=== PATIENT | male | born 1950 | race Caucasian/White ===

== ENCOUNTER 2019-11-15 19:07 | Inpatient (IN) | payer OTHER, MEDICARE ==
[~2019-11-15] VITALS: Ht 170.2 cm; Wt 107.6 kg
[2019-11-15] MEDS ORDERED: GABA300 PO (19:46)
[2019-11-15] MEDS ORDERED: ZESTORETIC 20-1 EACH PO (19:48)
[2019-11-15] MEDS ORDERED: PYRI100 PO (19:49)
[2019-11-15] MEDS ORDERED: B-1100 M1 PO (19:49)
[2019-11-15 20:08] LABS: BASOPHILS ABSOLUTE AUTO 0.04 K/mm3 (0.00-0.23); BASOPHILS PERCENT AUTO 1 % (0-2); EOSINOPHILS ABSOLUTE AUTO 0.13 K/mm3 (0.00-0.68); EOSINOPHILS PERCENT AUTO 2 % (0-6); Hematocrit 45.6 % (37.0-53.0); IMMATURE GRAN ABSOLUTE AUTO 0.03 K/mm3 (0.00-0.10); IMMATURE GRAN PERCENT AUTO 0 % (0-1); LYMPHOCYTES ABSOLUTE AUTO 1.92 K/mm3 (0.84-5.20); LYMPHOCYTES PERCENT AUTO 28 % (21-46); MONOCYTES ABSOLUTE AUTO 0.75 K/mm3 (0.16-1.47); MONOCYTES PERCENT AUTO 11 % (4-13); Mean Corpuscular HGB 30.8 pg (26.0-34.0); Mean Corpuscular HGB Conc 32.9 g/dL (31.5-36.5); Mean Corpuscular Volume 94 fL (80-100); Mean Platelet Volume 9.3 fL (9.1-12.4); NEUTROPHILS ABSOLUTE AUTO 4.07 K/mm3 (1.96-9.15); NEUTROPHILS PERCENT AUTO 59 % (41-73); Platelet Count 250 K/mm3 (150-400); RDW Coefficient Variation 11.7 % (11.7-14.2); Red Blood Cell Count 4.87 M/mm3 (4.30-5.90); White Blood Cell Count 6.94 K/mm3 (4.00-11.30)
[2019-11-15 20:35] LABS: Alanine Aminotransfer (ALT/SGP 35 U/L (12-78); Albumin, Blood 2.9 g/dL (3.4-5.0); Albumin/Globulin Ratio 0.6 (0.8-1.8); Alk Phos 136 U/L (50-136); Anion Gap 5 mmol/L (6-16); Aspartate Aminotrans (AST/SGOT 21 U/L (12-37); Bilirubin, Total 0.3 mg/dL (0.1-1.0); Blood Urea Nitrogen 10 mg/dL (8-24); Bun/Creatinine Ratio 13.6 (12.0-20.0); CO2, Blood 25 mmol/L (21-32); Calcium, Blood 8.2 mg/dL (8.5-10.1); Chloride, Blood 108 mmol/L (98-108); Creatinine, Blood 0.73 mg/dL (0.60-1.20); Ethanol (Alcohol), Blood, Med 192 mg/dL; Globulin, Blood 4.7 g/dL (2.2-4.0); Glomerular Filtration Rate >60 (60-); Glucose, Blood 111 mg/dL (70-99); Sodium, Blood 138 mmol/L (136-145); Total Protein, Blood 7.6 g/dL (6.4-8.2); Troponin I <0.015 ng/mL (0.000-0.040)
[2019-11-15 22:14] LABS: PO2 Arterial 63.3 mmHg (80-100); pH Blood Arterial 7.32 (7.35-7.45)
[2019-11-15 23:15] LABS: Magnesium, Blood 2.2 mg/dL (1.6-2.4); Phosphorus, Blood 3.2 mg/dL (2.5-4.9)
--- NOTE | 2019-11-16 00:15 | NUR ---
REPORT TELEPHONE REPORT RECEIVED FROM JEROD CUSTOMS GUARD. SHE [facility]B AND ADMIT WITH COPD EXAC. PT WILL NEED CPAP WHEN ADMITTED R/T SAT 88-94%. PT HAS RECEIVED ALBUTEROL RT TX AND DUONEBS TX R/T WHEEZES THROUGHOUT. PT GIVEN ATIVAN FOR ALCOHOL WITHDRAWAL AND NICOTENE PATCH PER REQUEST. PT NOW SOMULENT. 0015- BEDSIDE REPORT RECEIVED FROM CUSTOMS GUARD UPON ARRIVAL TO FLOOR. IV SITE DISCUSSED. PT TRANSFERRED SELF FROM COT TO BED WITH SBA. 0020- PT PLACED IN HOSPITAL GOWN AND PERSONAL BELONGINGS PLACED IN BAG AND PUT IN CABINET. VS OBTAINED. ADMISSION ASSESSMENT COMPLETED. HX OBTAINED FROM PT R/T A&O X4, AWAKE, ASKING FOR SNACK- SANDWICH GIVEN AFTER DISCUSSING WITH SOURAV FRIAS.
[2019-11-16] MEDS ORDERED: CLONIDINE1 EAC2 TOP (00:53)
[2019-11-16] MEDS ORDERED: Accuneb0.63 MG/3 INH (00:55)
[2019-11-16] MEDS ORDERED: HYDR10 PO (00:57)
[2019-11-16] MEDS ORDERED: LORA2 PO (00:57)
[2019-11-16 03:59] LABS: Hematocrit 44.5 % (37.0-53.0); Hemoglobin 14.6 g/dL (13.5-17.5); Mean Corpuscular HGB 30.8 pg (26.0-34.0); Mean Corpuscular HGB Conc 32.8 g/dL (31.5-36.5); Mean Corpuscular Volume 94 fL (80-100); Mean Platelet Volume 9.4 fL (9.1-12.4); Platelet Count 238 K/mm3 (150-400); RDW Coefficient Variation 11.6 % (11.7-14.2); RDW Standard Deviation 40.4 fL (35.1-46.3); Red Blood Cell Count 4.74 M/mm3 (4.30-5.90); White Blood Cell Count 8.47 K/mm3 (4.00-11.30)
[2019-11-16 04:21] LABS: Anion Gap 10 mmol/L (6-16); Blood Urea Nitrogen 11 mg/dL (8-24); Bun/Creatinine Ratio 14.3 (12.0-20.0); CO2, Blood 24 mmol/L (21-32); Calcium, Blood 8.5 mg/dL (8.5-10.1); Chloride, Blood 105 mmol/L (98-108); Creatinine, Blood 0.77 mg/dL (0.60-1.20); Glomerular Filtration Rate >60 (60-); Glucose, Blood 308 mg/dL (70-99); Potassium, Blood 4.1 mmol/L (3.5-5.5); Sodium, Blood 139 mmol/L (136-145)
[2019-11-16 04:46] LABS: BAND PERCENT MAN 6 % (0-8); BASOPHILS PERCENT MAN 0 % (0-2); EOSINOPHILS PERCENT MAN 0 % (0-6); LYMPHOCYTES ABSOLUTE MAN 0.33 K/mm3 (0.84-5.20); LYMPHOCYTES PERCENT MAN 4 % (21-46); METAMYELOCYTE ABSOLUTE MAN 0.08 K/mm3 (0.00-0.00); METAMYELOCYTE PERCENT MAN 1 % (0-0); MONOCYTES ABSOLUTE MAN 0.33 K/mm3 (0.16-1.47); MONOCYTES PERCENT MAN 4 % (4-13); MYELOCYTE ABSOLUTE MAN 0.08 K/mm3 (0.00-0.00); MYELOCYTE PERCENT MAN 1 % (0-0); NEUTROPHILS ABSOLUTE MAN 7.62 K/mm3 (1.96-9.15); SEG NEUTROPHILS PERCENT MAN 84 % (41-73); TOTAL CELLS COUNTED 100
--- NOTE | 2019-11-16 06:45 | NUR ---
SHIFT SUMMARY PT ADMITTED FROM THE ER FOR EXAC OF COPD. PT TRANSFERED SELF TO BED FROM ER COT WITH VERBAL CUES. PT A&OX4 THIS SHIFT, CIWA FROM 6 TO 0. PT RECEIVED BANANA BAG X1, PRECEDEX FROM 0.2mcg/kg/HR AND STOPPED AT 0415. HEART RATE REMAINS ST PER MONITOR, RATE 110s. B/P ELEVATED. LUNGS EXP WHEEZES THROUGHOUT, SOB WITH ACTIVITY, SAT MID-90s ON RA. BOWEL SOUNDS PRESENT, ABD ROUND, SOFT, NONTENDER. PT STATES HAS URGE INCONTENCE, PULL-UP IN PLACE. SKIN WNL. SL X2 TO RT FA. RAILS UP X3, CALL LIGHT IN REACH, SCDs IN PLACE. BEDSIDE REPORT GIVEN TO DAY SHIFT RN.
--- NOTE | 2019-11-16 07:30 | NUR ---
Received report from Fabiola ALEXANDRA. Patient siiting up in bed watching TV and on RA and sats mid 90%'s. He denies any SOB , pain or current needs. He is a good historian of events leading to admission. He states he wants to stop drinking and states no current suicidal ideas. He MAEW and is SBA when getting up to bathroom. He has 20ga IV Upper RFA dressing intact and site WNL's and is flushed and SL'd.He also has 22ga IV lower RFA dressing intact and site WNL's and is flushed and SL's. He uses urinal appropriately. He has been hypertensive and with communicate with Dr Das for starting him on home meds.
--- NOTE | 2019-11-16 09:27 | NUR ---
Patient tolerated 100% of breakfast and am meds.Called Dr Das and had her look at home meds for his hypertension. Medicated per mar for anxiety Ativan and Librium. Also started him on New BP meds and dieuretic. He denies any current needs. Dr Das in room now assessing patient.
--- NOTE | 2019-11-16 11:43 | NUR ---
Patient was up in chair and the bed was malfunctioning and was changed out. He was wanting to get up to shower after lunch. He curently went back to bed until after lunch. He remains hypertensive 170-180's systolic. He denies any current needs.
--- NOTE | 2019-11-16 13:57 | NUR ---
Patient sistolic 160 with PRN dose labatelol 10mg. Talked with Dr Das and he can go to PCU. Patient remains CIWA about 6. VSS. Patient currently resting on right side.
--- NOTE | 2019-11-16 18:24 | NUR ---
Patient has been resting without TV on and has been up intermitently to have bathroom privledges with one SBA. His systolic remains 160's, HR 1 teens. He has remainsed CIWA 5.
--- NOTE | 2019-11-16 20:00 | NUR ---
ASSUMED CARE NOTE: ASSUMED CARE OF PT AT 1900, RECEIVED REPORT FROM TORREY ALEXANDRA. UPON ENTERING ROOM PT IS ALERT AND ORIENTED X4, HOWEVER HE WAS STATING THAT HE WAS HAVING VISUAL HALLUCINATIONS (CARTOON CHARACTERS ON THE WALL), HE DENIES AUDITORY HALLUCINATIONS. LATEST CIWA SCORE WAS 11, MEDICATED PT PER EMAR. C/O OF HEADACHE, TREMOR, AND DIARRHEA. PT IS AFEBRILE AT THIS TIME. PT IS ON RA WITH SPO2 @ 93%, NO RESPRIATORY DISTRESS NOTED. PT DENIES PAIN AT THIS TIME. PT IN SIT WITH HR BETWEEN 90-100 BPM. SBP IN THE 170'S, WILL MEDICATE PER EMAR. BED AT LOWEST LEVEL, CALL LIGHT WITHIN REACH. WILL CONTINUE TO MONITOR PT T/O SHIFT.
--- NOTE | 2019-11-16 22:07 | NUR ---
RECEIVED REPORT FROM SHIVANI ALEXANDRA, ASSUMED CARE OF PT @ 2177.
--- NOTE | 2019-11-16 22:37 | NUR ---
SMOKING CESSATION EDUCATION PT STS QUIT SMOKING 3 WEEKS AGO, USING NICOTINE LOZENGES AT HOME TO ASSIST IN CESSATION. THIS RN NOTICED LOZENGES AT BEDSIDE, PT STS HAS BEEN TAKING 2MG LOZENGE APPROX Q8H. PT HAS NICOTINE PATCH ON L ARM, EDUCATED PT ON RISKS WITH TAKING TOO MUCH NICOTINE. PT STS HE HAS READ THE LABELS ON THE LOZENGES AND GUM AND DOES NOT THINK HE IS TAKING TOO MUCH. LET PT KNOW THAT WE WILL NEED AN ORDER WHILE HE IS IN THE HOSPITAL TO CONTINUE TO TAKE LOZENGES. WILL FOLLOW UP WITH PROVIDER.
--- NOTE | 2019-11-17 02:08 | NUR ---
ANXIETY/AGITATION PT BECOMING INCREASINGLY AGITATED AND ANXIOUS, CIWA INCREASING TO >20. PT BEGAN TO HAVE HALLUCINATIONS, STS SEEING SNAKES ON THE FLOOR, VERY RESTLESS AND FIDGETING HIS FEET, ALTERNATING BETWEEN SQUEEZING AND PETTING PILLOW, PT TALKING VERY FAST- CONCERNED ABOUT PAYING BILLS WHILE HE IS IN THE HOSPITAL/TREATMENT PROGRAM, SOME TACTILE DISTURBANCES. PRECEDEX INITIATED AND TITRATED NEEDED (SEE FLOWSHEET). THIS RN AND OFFICE SWEEPER, DOUG, AT BEDSIDE SPEAKING WITH PT ABOUT CONCERNS. [facility]" WHEN HE NEEDED HELP. PT ENGAGED IN CONVERSATION PRECEDEX INFUSING, PT TALKED WITH NURSING STAFF ABOUT HIS DOG THAT RECENTLY , BECAME TEARFUL, CONVERSATION REDIRECTED TO HOBBIES, PT ABLE TO SPEAK AT LENGTH REGARDING HIS ENJOYMENT OF MUSHROOM PICKING, VARIOUS TYPES OF MUSHROOMS, RECIPES, ETC. SPEECH SLOWED TO NORMAL RATE, PT APPEARS LESS AGITATED AND ANXIOUS. CALL PLACED TO DR BLAKE REGARDING CHAGNES, PT CHANGED TO ICU STATUS.
[2019-11-17 03:30] LABS: BASOPHILS ABSOLUTE AUTO 0.01 K/mm3 (0.00-0.23); BASOPHILS PERCENT AUTO 0 % (0-2); EOSINOPHILS PERCENT AUTO 0 % (0-6); Hematocrit 45.3 % (37.0-53.0); Hemoglobin 15.3 g/dL (13.5-17.5); IMMATURE GRAN ABSOLUTE AUTO 0.09 K/mm3 (0.00-0.10); IMMATURE GRAN PERCENT AUTO 1 % (0-1); LYMPHOCYTES ABSOLUTE AUTO 0.64 K/mm3 (0.84-5.20); LYMPHOCYTES PERCENT AUTO 4 % (21-46); MONOCYTES ABSOLUTE AUTO 0.51 K/mm3 (0.16-1.47); MONOCYTES PERCENT AUTO 3 % (4-13); Mean Corpuscular HGB Conc 33.8 g/dL (31.5-36.5); Mean Corpuscular Volume 92 fL (80-100); Mean Platelet Volume 9.3 fL (9.1-12.4); NEUTROPHILS ABSOLUTE AUTO 15.96 K/mm3 (1.96-9.15); NEUTROPHILS PERCENT AUTO 93 % (41-73); Platelet Count 281 K/mm3 (150-400); RDW Coefficient Variation 11.6 % (11.7-14.2); RDW Standard Deviation 39.5 fL (35.1-46.3); Red Blood Cell Count 4.93 M/mm3 (4.30-5.90); White Blood Cell Count 17.21 K/mm3 (4.00-11.30)
[2019-11-17 03:45] LABS: Anion Gap 8 mmol/L (6-16); Blood Urea Nitrogen 23 mg/dL (8-24); Bun/Creatinine Ratio 26.7 (12.0-20.0); CO2, Blood 25 mmol/L (21-32); Chloride, Blood 104 mmol/L (98-108); Creatinine, Blood 0.86 mg/dL (0.60-1.20); Glomerular Filtration Rate >60 (60-); Glucose, Blood 236 mg/dL (70-99); Sodium, Blood 137 mmol/L (136-145)
--- NOTE | 2019-11-17 06:02 | NUR ---
SHIFT SUMMARY PT STATUS CHANGED TO ICU, PLACED BACK ON PRECEDEX THIS SHIFT (SEE PREVIOUS NOTE), INCREASED AGITATION AND CIWA TOWARDS END OF SHIFT, PRECEDEX GTT INF @ 0.7, PRN LIBRIUM PROVIDED. PT WITH EXERTIONAL DYSPNEA, O2 SATURATIONS MAINTAINED> 90% ON RA WHILE AWAKE, SATURATIONS DECREASED TO 88% DURING PERIODS OF SLEEP/REST, 2L PER NC PLACED ON PT. MONITOR SHOWS HR 80'S-90'S, HYPERTENSIVE WITH SBP 130'S-180'S, PRN BP MEDICATION AND ETOH WITHDRAWAL MEDICATION ADEQUATE FOR BP CONTROL. PT COMPLAINS OF DIARRHEA, REQUESTS IMMODIUM FOR RELIEF, STOOLS THIS SHIFT SOFT BUT FORMED, SBA TO BEDSIDE TOILET.
--- NOTE | 2019-11-17 08:28 | NUR ---
PT IS SLEEPING ON PRECEDEX GTT AT 0.7MCG AND WILL ASSESS AND CONCIDER DEC. GTT. VSS. AND SATS NOTED BUT O2 WAS OUT OF HIS NOSE AND STILL ADIQUATE. WILL ASSESS FURTHER. DID NOT ATTEMP TO FULLY AWAKEN PT AT THIS POINT.
--- NOTE | 2019-11-17 09:14 | NUR ---
DR WOODSON IN TO VIEW AND ASSESS PT STATUS. VSS. PRECEDEX GTT JUST TURNED DOWN TO 0.6 MCG AND WILL FOLLOW PT STATUS.
--- NOTE | 2019-11-17 10:58 | NUR ---
NEW IV SITE STARTED. PRECEDEX GTT REMAINS AT 0.6 MCG AND PT IS EASILY AROUSED BUT WILL FALL TO SLEEP WHEN LEFT ALONE. PT ANSWERS QUESTIONS AND WILL FOLLOW LIMITED COMMANDS AND IS KENDALL WELL.
--- NOTE | 2019-11-17 14:02 | NUR ---
PT SLEEPING WITH BP SLOWLY BEGINING TO COME DOWN AFTER DELAYED AM BP MEDS WERE GIVEN. PT WAS AWAKE ENOUGH TO TALK NOON PO MEDS. WILL FOLLOW.
--- NOTE | 2019-11-17 15:24 | NUR ---
PT UP TO BSC WITH SBA AND VOIDED. PT ABLE TO CONVERSE BUT FALLING TO SLEEP WHEN LEFT ALONE. SPEECH IS SL GARBLED BUT ABLE TO UNDERSTAND IT.
--- NOTE | 2019-11-17 18:32 | NUR ---
PT HAS BEEN DROWSY AND SLEEPING BUT AWAKENED, LIBRIUM PO GIVEN, AND PT AWAKE ENOUGH TO REQUEST MEDICATION. PT HAS TAKEN PO LIQUID WELL BUT DOES EASILY FALL TO SLEEP AND HAVE BEEN CAUTIOUS WITH PO SOLIDS. PRECEDEX GTT IS 0.6 MCG AND BANANNA BAG IS COMPLET. CIWA NOTED.
--- NOTE | 2019-11-17 19:13 | NUR ---
ASSUMED CARE NOTE: ASSUMED CARE OF PT @ 1900, RECEVIED REPORT FROM ED ALEXANDRA. UPON ENTERING ROOM PT IS SEDATED WITH 0.6MCG/KG/HR, HOWEVER IS IS AROUSABLE. PT IS ORIENTED TO SELF, PLACE, DATE, TIME. HE IS ABLE TO RECALL RECENT AND REMOTE EVENTS. HE STATES HE IS NO LONGER HAVING VISUAL/AUDITORY HALLUCINATIONS. PT STATES HE IS HUNGRY, HOWEVER HE CANNOT STAY AWAKE LONG ENOUGH TO EAT SAFLEY. PT IS DIAPHORETIC, AFEBRILE. PT IS ON 2L OF O2 VIA NC, WITH SPO2 @ 94%, PT STATES HE IS SOB, RT @ BEDSIDE DELIVERING BREATHING Tx. PT DENIES ANY PAIN/NAUSEA AT THIS TIME. BED AT LOWEST LEVEL. WILL CONTINUE TO MONITOR PT T/O SHIFT.
--- NOTE | 2019-11-17 21:51 | NUR ---
UPDATE: PT WOKE UP ASKING FOR FOOD AND WATER. PT HAS ABLE TO STAY AWAKE DURING BEDSIDE SWALLOW EVAL AND WAS ABLE TO SWALLOW SAFLEY. PT STATES THAT HE WANTS A PHSYCIATRIC CONSULT BECAUSE HE WAS HAVING HALLUCINATIONS LAST NIGHT. HE STATED " MY HALLUCINATIONS HAVE NEVER BEEN THIS BAD AND, AND I THINK IT IS THE MEDS I AM GETTING". PT WAS THEN EDUCATED ON MEDICATION SIDE-EFFECTS/ ALCOHOL WITHDRAWAL S/S.
--- NOTE | 2019-11-17 23:35 | NUR ---
UPDATE: PT HAS BEEN GETTING UP 1 ASSIST, PT IS DEMONSTRATING UNSTEADY GAIT. HE IS ENCOURAGED TO USE THE URINAL IN BED. PT LAST CIWA 5. DECREASED PRECEDEX TO 0.5MCG/KG/HR. PT REFUSED HIS MIDNIGHT BREATHING Tx, AND DENIES SOB. PT CONTINUES TO BE ON 2L OF O2 VIA NC, WITH SPO2 @ 92%
--- NOTE | 2019-11-18 00:30 | NUR ---
PRECEDEX DECREASES PRECEDEX DECREASED TO 0.2MCG/KG/HR , DUE TO LOW HR IN THE 50'S.
[2019-11-18 03:44] LABS: BASOPHILS ABSOLUTE AUTO 0.01 K/mm3 (0.00-0.23); BASOPHILS PERCENT AUTO 0 % (0-2); EOSINOPHILS PERCENT AUTO 0 % (0-6); Hematocrit 47.9 % (37.0-53.0); Hemoglobin 15.7 g/dL (13.5-17.5); IMMATURE GRAN ABSOLUTE AUTO 0.09 K/mm3 (0.00-0.10); IMMATURE GRAN PERCENT AUTO 1 % (0-1); LYMPHOCYTES ABSOLUTE AUTO 0.59 K/mm3 (0.84-5.20); LYMPHOCYTES PERCENT AUTO 4 % (21-46); MONOCYTES ABSOLUTE AUTO 0.31 K/mm3 (0.16-1.47); MONOCYTES PERCENT AUTO 2 % (4-13); Mean Corpuscular HGB 30.4 pg (26.0-34.0); Mean Corpuscular HGB Conc 32.8 g/dL (31.5-36.5); Mean Corpuscular Volume 93 fL (80-100); Mean Platelet Volume 9.5 fL (9.1-12.4); NEUTROPHILS ABSOLUTE AUTO 13.06 K/mm3 (1.96-9.15); NEUTROPHILS PERCENT AUTO 93 % (41-73); Platelet Count 261 K/mm3 (150-400); RDW Coefficient Variation 11.8 % (11.7-14.2); RDW Standard Deviation 40.1 fL (35.1-46.3); Red Blood Cell Count 5.17 M/mm3 (4.30-5.90); White Blood Cell Count 14.06 K/mm3 (4.00-11.30)
--- NOTE | 2019-11-18 03:44 | NUR ---
CIWA SCORE OF 16, PT TREMORS ARE WORSENING. PT STATED " HELP, A HALF GLASS OF WINE WOULD MAKE THIS STOP". PRECEDEX INCREASED TO 0.4MCG/KG/HR (WILL MONITOR HR). PT ANXIOUS AND C/O HEADACHE, PT ALSO STATED HE FEELS PINS AND NEEDLES ALL OVER HIS BODY. ALSO GAVE LIBRIUM, AND ATIVAN PER EMAR.
[2019-11-18 04:02] LABS: Anion Gap 7 mmol/L (6-16); Blood Urea Nitrogen 22 mg/dL (8-24); Bun/Creatinine Ratio 29.8 (12.0-20.0); CO2, Blood 25 mmol/L (21-32); Calcium, Blood 8.5 mg/dL (8.5-10.1); Chloride, Blood 105 mmol/L (98-108); Creatinine, Blood 0.74 mg/dL (0.60-1.20); Glomerular Filtration Rate >60 (60-); Glucose, Blood 287 mg/dL (70-99); Magnesium, Blood 2.3 mg/dL (1.6-2.4); Potassium, Blood 3.6 mmol/L (3.5-5.5); Sodium, Blood 137 mmol/L (136-145)
--- NOTE | 2019-11-18 05:25 | NUR ---
SHIFT SUMMARY: SEE PREVIOUS NOTES. PT'S LATEST CIWA SCORE WAS A 20, PRECEDEX GTT @ 0.6MCG/KG/HR , MEDICATED PT PER EMAR WITH PRN MEDS. PT IS NOW RESTING AND ABLE TO SLEEP. PT CONTINUES TO BE ON 2L OF O2 VIA NC WITH SPO2 ABOVE 90% VSS. NO BM'S THIS SHIFT. PT HAS BEEN GETTING UP TO THE BEDSIDE TOILET WITH 1 PERSON ASSISTANCE. PT CONTINUES TO HAVE UNSTEADY GAIT. PT HAS BEEN MOSTLY IN NSR WITH HR RANGING FROM 60-80'S. HOWEVER, PT'S HR DROPPED INTO THE 50'S AT ONE POINT, THEN SLOWEY CAME BACK UP INTO THE 70'S AFTER PRECEDEX WAS DECREASED. BED AT LOWEST LEVEL, CALL LIGHT WITHIN REACH. WILL CONTINUE TO MONITOR PT UNTIL REPORT IS GIVEN TO ONCOMING SHIFT.
--- NOTE | 2019-11-18 07:00 | NUR ---
0700-ASSUMED CARE OF PT. PT IS ASLEEP AT THIS TIME. ON PRECEDEX @ 0.04MCG/KG/HR. WILL ALLOW PT TO SLEEP AT THIS TIME. 0730-PT IS AWAKE. AFEBRILE. ALERT AND ORIENTED. CIWA IS 9. PT HAS GARBLED SPEECH BUT CAN BE UNDERSTOOD.
--- NOTE | 2019-11-18 16:45 | NUR ---
Initial spiritual care note: Mr. Broussard appeared alert, albeit a bit slow. Speech is slightly garbled, but he is understandable. He admitted to feeling fearful and told me he is hospitalized for "breathing problems." He did not mention his desire to quit drinking. He reports a strong zuleyka and appreciation for prayer/spiritual encouragement. We had a good rapport. I will continue to see Mr. Broussard in coming days and will broach the topic of his alcoholism.
--- NOTE | 2019-11-18 17:58 | NUR ---
SHIFT SUMMARY: PT IS STILL ON PRECEDEX DRIP @ 0.5MCG/KG/HR. DENIES PAIN. CIWA FROM 7-15. PT HAD A DOSE OF ATIVAN AND A SCHEDULED DOSE OF LIBRIU. PT IS ALERT AND ORIENTED. PT SLEEPS MOST OF THE TIME BUT EASILY AWAKENED AND MAKES A GOOD CONVERSATION.
[2019-11-19 04:34] LABS: BASOPHILS ABSOLUTE AUTO 0.01 K/mm3 (0.00-0.23); BASOPHILS PERCENT AUTO 0 % (0-2); EOSINOPHILS PERCENT AUTO 0 % (0-6); Hematocrit 48.6 % (37.0-53.0); IMMATURE GRAN ABSOLUTE AUTO 0.08 K/mm3 (0.00-0.10); IMMATURE GRAN PERCENT AUTO 1 % (0-1); LYMPHOCYTES ABSOLUTE AUTO 0.62 K/mm3 (0.84-5.20); LYMPHOCYTES PERCENT AUTO 5 % (21-46); MONOCYTES ABSOLUTE AUTO 0.45 K/mm3 (0.16-1.47); MONOCYTES PERCENT AUTO 4 % (4-13); Mean Corpuscular HGB 30.5 pg (26.0-34.0); Mean Corpuscular HGB Conc 32.9 g/dL (31.5-36.5); Mean Corpuscular Volume 93 fL (80-100); Mean Platelet Volume 9.5 fL (9.1-12.4); NEUTROPHILS ABSOLUTE AUTO 10.38 K/mm3 (1.96-9.15); NEUTROPHILS PERCENT AUTO 90 % (41-73); Platelet Count 248 K/mm3 (150-400); RDW Coefficient Variation 11.9 % (11.7-14.2); RDW Standard Deviation 40.4 fL (35.1-46.3); Red Blood Cell Count 5.25 M/mm3 (4.30-5.90); White Blood Cell Count 11.54 K/mm3 (4.00-11.30)
[2019-11-19 04:48] LABS: Anion Gap 6 mmol/L (6-16); Blood Urea Nitrogen 28 mg/dL (8-24); Bun/Creatinine Ratio 32.6 (12.0-20.0); CO2, Blood 28 mmol/L (21-32); Calcium, Blood 8.7 mg/dL (8.5-10.1); Chloride, Blood 105 mmol/L (98-108); Creatinine, Blood 0.86 mg/dL (0.60-1.20); Glomerular Filtration Rate >60 (60-); Glucose, Blood 207 mg/dL (70-99); Magnesium, Blood 2.2 mg/dL (1.6-2.4); Phosphorus, Blood 3.7 mg/dL (2.5-4.9); Potassium, Blood 4.1 mmol/L (3.5-5.5); Sodium, Blood 139 mmol/L (136-145)
--- NOTE | 2019-11-19 06:07 | NUR ---
SHIFT SUMMARY PATIENT DID WELL UP UNTIL ABOUT MIDNIGHT. WITH LAST THREE NIGHTS, RAMPED UP AROUND MIDNIGHT. CIWA MAX 24, HAD JUST RECEIVED SCHEDULED LIBRIUM, INCREASED PRECEDEX, AND MULTIPLE IVP ATIVAN (SEE EMAR,) WAS STILL ANXIOUS, DID WANDER OFF TO SLEEP SHORTLY AFTER LAST ATIVAN. BP CONTINUED TO CLIMB DESPITE RECEIVING PRN LABETALOL, ADDITIONAL LISINOPRIL, HYDRALAZINE, WAS STARTED ON NICARDIPINE DRIP. DECREASED TO 3 MG/HR AROUND 05:30 AFTER SBP READ LESS THAN 160, PER DR. DOUGLAS ORDER. NO C/O PAIN, NO NEURO CHANGE, NO ST CHANGES ON MONITOR. VSS. ASSESSMENT IS CHARTED. WILL CONTINUE TO MONITOR.
--- NOTE | 2019-11-19 07:24 | NUR ---
Received report from Samuel ALEXANDRA. Patient lying in bed with HOB at 30 degrees and awake and listening to report. He has no questions. He is able to communicate his needs and is able to answer most question of orientation. He c/o 4/10 headache and has moderate tremors. He is on RA and sats 94%. He uses urinal with assistance and calls appropriately. He has 20ga IV to RW dressing intact and site WNL's and is infusing Precedex at 0.7 mcg/kg/min. He also has 20ga IV to RH dressining intact and site WNL's and is infusing Nicardipine at 2mg/hr just reduced from 3mg/hr for systolic 109. CBG 183 and will cover per DEC. SCD's in place.
--- NOTE | 2019-11-19 09:31 | NUR ---
Patient currently resting. He needed assisstance with breakfast r/t tremors. He tolerated am meds well. He is still able to communicate his needs. Reduced Precedex to 0.5 mcg/kg/min and he is sleeping.
--- NOTE | 2019-11-19 12:00 | NUR ---
Patient was up to bathroom with 1 full assist. VSS. He remains on 2 mg/hr Nicardipine and systolics 110-120's, HR70-80's. He remains fuzzy and un-sure of care at all times and needs to be reoriented to plan and medications. He continues to call appropriately with needs.
--- NOTE | 2019-11-19 13:30 | NUR ---
Patient did poorly with lunch and aspirated at 1215 and needed to be suctioned for about an hour. He took his noon meds. No changes in Gtt's and VSS. He remains on RA and sats low 90%'s. Patient easeily agitates and makes confusing statements about his care and needs constant reorienting to keep on track. SCD remain in place.
--- NOTE | 2019-11-19 15:30 | NUR ---
Patient has been resting since lunch. He awoke breifly yelling for help with urinal and peed 500ml tea colored urine and fell right back to sleep.
[2019-11-20 03:42] LABS: BASOPHILS ABSOLUTE AUTO 0.02 K/mm3 (0.00-0.23); BASOPHILS PERCENT AUTO 0 % (0-2); EOSINOPHILS PERCENT AUTO 0 % (0-6); Hematocrit 48.5 % (37.0-53.0); IMMATURE GRAN ABSOLUTE AUTO 0.14 K/mm3 (0.00-0.10); IMMATURE GRAN PERCENT AUTO 1 % (0-1); LYMPHOCYTES ABSOLUTE AUTO 1.43 K/mm3 (0.84-5.20); LYMPHOCYTES PERCENT AUTO 13 % (21-46); MONOCYTES ABSOLUTE AUTO 0.95 K/mm3 (0.16-1.47); MONOCYTES PERCENT AUTO 9 % (4-13); Mean Corpuscular HGB 30.5 pg (26.0-34.0); Mean Corpuscular Volume 92 fL (80-100); Mean Platelet Volume 9.3 fL (9.1-12.4); NEUTROPHILS ABSOLUTE AUTO 8.42 K/mm3 (1.96-9.15); NEUTROPHILS PERCENT AUTO 77 % (41-73); Platelet Count 237 K/mm3 (150-400); RDW Coefficient Variation 11.9 % (11.7-14.2); RDW Standard Deviation 40.6 fL (35.1-46.3); Red Blood Cell Count 5.25 M/mm3 (4.30-5.90); White Blood Cell Count 10.96 K/mm3 (4.00-11.30)
[2019-11-20 03:59] LABS: Anion Gap 5 mmol/L (6-16); Blood Urea Nitrogen 30 mg/dL (8-24); Bun/Creatinine Ratio 32.5 (12.0-20.0); CO2, Blood 29 mmol/L (21-32); Calcium, Blood 8.7 mg/dL (8.5-10.1); Chloride, Blood 106 mmol/L (98-108); Creatinine, Blood 0.92 mg/dL (0.60-1.20); Glomerular Filtration Rate >60 (60-); Glucose, Blood 156 mg/dL (70-99); Magnesium, Blood 2.1 mg/dL (1.6-2.4); Potassium, Blood 3.8 mmol/L (3.5-5.5); Sodium, Blood 140 mmol/L (136-145)
--- NOTE | 2019-11-20 04:45 | NUR ---
SHIFT SUMMARY PATIENT HAS SLEPT WELL THROUGH NIGHT. ONLY GAVE ATIVAN TWICE, SEE EMAR. CIWA MAX 30, TREATED WITH 4MG ATIVAN, IMMEDIATE RELIEF. PATIENT MAINTAINED ON 0.7 MCG/KG/MIN OF PRECEDEX, WILL ATTEMPT TO WEEN NOW THAT PATIENT SLEEPING SOUNDLY. NICARDIPINE DRIP MAINTAINED @ 1 MG/HR, NOT TITRATED SBP MAINTAINING AROUND 150s. VISUAL HALLUCINATIONS MORE INFREQUENT, TREMORS STILL PRESENT OCASSIONALLY. VSS. NO C/O PAIN. ASSESSMENT IS CHARTED. WILL CONTINUE TO MONITOR.
--- NOTE | 2019-11-20 07:43 | NUR ---
Received report from Samuel ALEXANDRA. Patient sitting up in bed and able to communicate his needs. He is a little clear todayand will call when he starts to have hallucinations. He is on RA and sats 94%. He has 20ga IV in RFA that he states and wants removed and will replace. His Precedex and Nicardipine gtt are off and VSS, see VS EMR. SCD in place bilateral calves. CBG 167
--- NOTE | 2019-11-20 10:11 | NUR ---
Patient up to bathroom several times and needs to have 1 full SBA and he is still unsteady. He was up to chair with breakfast and tolerated am meds well. He just rteturned from shower with PCT and she is also changing bed linen. He has not stated any visual hallucinations. VSS stable with PO meds and Nicardipine gtt remains off.
--- NOTE | 2019-11-20 12:18 | NUR ---
Patient is up to chair eating lunch and tolerating well. His systolic trending up and is 140's and HR 103 and he remains on RA and sats low 90%'s. No other significant changes. Patient has not stated any visual hallucinations.
--- NOTE | 2019-11-20 14:26 | NUR ---
Spiritual care visit conducted. Patient is lying in bed and alert. Patient states that his reason for calling for spiritual care is because he wants someone to set up auto-pay on his utilities because he is going out of state for alcohol reheb. I tell I will check into this for him. I then ask him about his life, his addiction, his spiritual beliefs and how DTs are effecting him. I listen empathically and provide pastoral peer counselor and prayer. Patient responds well and shows signs of restored zuleyka. I will continue to remain available to patient and family.
--- NOTE | 2019-11-20 15:00 | NUR ---
Patient has been up to bathroom several times. After lunch his anxiety increased and ativan and Librium was not working and restarted Precedex at 0.3 mcg/kg/min and within an hour at 1400 increased to 0.5 mcg/kg/min. Around 1400 his systolic increased 170's and po med were not working and started Nicardipine gtt at 2mg/min and current systolic 120's.
--- NOTE | 2019-11-20 16:59 | NUR ---
Patient is working on Nicotine lozengers from [facility] and if needed to pear picker we can call [facility] wheelchair van and take his [facility] and last four and they will pear picker from [facility]. Gtt's remain the same as last note and VSS. Patient calm and denies and visual hallucinations. He remains on RA and sats low 90%'s.
--- NOTE | 2019-11-21 05:40 | NUR ---
SHIFT SUMMARY PATIENT HAS SLEPT OFF AND ON THROUGH NIGHT. EARLY IN NIGHT HAD TO MEDICATE WITH 4MG ATIVAN, VISUAL HALUCINATIONS HAD GOTTEN SEVERE PATIENT HAD NOT RECEIVED SCHEDULED LIBRIUM AT SCHEDULED TIME. WOULD LIKELY BENEFIT FROM STRICTER ADHERANCE TO MEDICATION SCHEDULE. NIGHT WENT ON, PATIENT WAS MORE CALM, DID ASK SEVERAL TIMES FOR ONE OF US TO LEAVE HOSPITAL TO GET NICOTINE LOZENGES, UNABLE TO FILL REQUEST, IT WILL BE TAKEN CARE OF IN A.M., ABLE TO CALL [facility] AND RN CORRECTIONS THROUGH [facility]. GAVE ATIVAN FOR MODERATE TO SEVERE HALUCINATIONS, SEE CHART. VSS. ASSESSMENT IS CHARTED. WILL CONTINUE TO MONITOR.
--- NOTE | 2019-11-21 09:52 | NUR ---
BEGINNING OF SHIFT Assumed care at 0700. Bedside report received from Tarun ALEXANDRA. Pt in bed, sleeping. On 0.7 mcg/kg/hr precedex and 1 mg/hr nicardipine. Nicardipine turned off during bedside report, SBP 120s. Dr Jimenes in to see pt this AM. Discussed that pt is out of his home nicotine lozenges. Nicotine gum ordered. Provider aware that pt has nicotine patch in place. Precedex turned down to 0.3 mcg/kg/hr. Pt awake. Pt states "I am anxious as hell", skin clammy to the touch, pt vomiting, pt states he is uncomfortable and is feeling numbness and tingling throughout his body. Meds per orders. SBP 85-95. Call placed to Dr Jimenes to notify of BP. Telephone order to hold all oral antihypertensives at this time.
--- NOTE | 2019-11-21 13:39 | NUR ---
[facility] Call placed to Dr Jimenes at 1145 regarding pt's blood pressures. New orders received. Pt awoke around lunch time. Librium given at this time. Pt points to end of bed and states "there is a snake. It is hissing at me." Pt correctly states that he is in [place], in the hospital. Pt agitated. Rubbing his head and states that it hurts. Visible beads of sweat on pt's forehead. Meds per orders. BP low-normal. MAP 60 or greater. Lunch tray held as pt was drowsy.
--- NOTE | 2019-11-21 18:17 | NUR ---
SUMMARY Pt awoke for dinner. Tolerated dinner well. Pt has not gotten OOB this shift. Pt has verbalized desire to get OOB. Pt is not strong enough for this activity at this time. Pt is receiving precedex at rate of 0.7 mcg/kg/hr. Pt has not had any hallucinations this evening. Pt remains on 2 LPM NC. Will continue to closely monitor until care handoff and bedside report with oncoming RN.
--- NOTE | 2019-11-21 19:15 | NUR ---
ASSUMED CARE AT 1915, PT ASLEEP, VITALS WNL, ON NC 2L.
[2019-11-22 05:13] LABS: Anion Gap 5 mmol/L (6-16); Blood Urea Nitrogen 21 mg/dL (8-24); CO2, Blood 28 mmol/L (21-32); Calcium, Blood 8.5 mg/dL (8.5-10.1); Chloride, Blood 107 mmol/L (98-108); Creatinine, Blood 0.75 mg/dL (0.60-1.20); Glomerular Filtration Rate >60 (60-); Glucose, Blood 186 mg/dL (70-99); Magnesium, Blood 2.3 mg/dL (1.6-2.4); Potassium, Blood 4.5 mmol/L (3.5-5.5); Sodium, Blood 140 mmol/L (136-145)
--- NOTE | 2019-11-22 06:02 | NUR ---
PT ALERT WHEN AWAKE BUT IS CONVINCED THE ARE SNAKES AND CARTOON CHARACTERS IN THE ROOM HISSING AND CRAWLING ON HIM. CONTROLLED WITH ATIVAN AND LIBRIUM. PT VOID PER URINAL IN BED BUT HAS URGENCY. POWERGLIDE INSERTED IN RIGHT AC PER ICU NURSE. PRECEDEX INFUSING, UNABLE TO TITRITE DOWN DUE TO PT AGITATION. NICOTINE GUM GIVEN. PT ENJOYS JELLO. NO ACUT EVENTS WILL CONITUE TO MONITOR.
--- NOTE | 2019-11-22 07:15 | NUR ---
BEGINNING OF SHIFT Assumed care at 0700. Bedside report received from Bautista ALEXANDRA. Pt on 2 LPM NC. SpO2 90% or greater. Responsive to verbal stimulus. SB/SR per heart monitor with HR ranging from 58-65. Pt on precedex at 0.7 mcg/kg/hr. SBP greater than 100. Bed in lowest position. Call light in reach. Bed alarm on.
--- NOTE | 2019-11-22 09:00 | NUR ---
DR DOUGLAS IN TO SEE PT CIWA disucssed. Discussed BP. IV fluids stopped per verbal order from provider. Provider states to start antihypertensives one at a time, starting with lisinopril and then hydralyzine.
--- NOTE | 2019-11-22 15:14 | NUR ---
CALL PLACED TO DR JIMENES Pt has been reporting pain to right hand. Site warm and red. Call placed to Dr Jimenes to notify. Provider in room to assess site. States suspected thrombophelbitis. Venous duplex may be performed if redness progresses. Discussed chemical VTE prophylaxis. New orders given.
--- NOTE | 2019-11-22 18:39 | NUR ---
INCREASING CIWA Pt medicated with PRN ativan and PRN librium in addition to scheduled meds this evening, as pt was having visual hallucinations, stating he saw bugs crawling on his blankets. Pt A&O x 4. Pleasant and cooperative with staff. At 1820, this RN went into pt's room, and he was staring up at the ceiling. He pointed to the ceiling and stated "You and I are going to war". When asked who he was speaking to, he stated "Sage Leonardo" and stated "He told me he was going to do this to me someday". He states "Get out of my house". Pt adds "I need to leave". When asked if he is still seeing bugs on his blankets, he states "Yes". Pt medicated with PRN ativan. Precedex remains at 0.7 mcg/kg/hr.
--- NOTE | 2019-11-22 18:45 | NUR ---
SUMMARY Pt has slept for majority of shift. Pt awakes to verbal stimulus. Around 1200 and 1800, pt alert enough for PO intake and took oral medications with sips of ensure. This evening, pt ate one jello, and did not want more food. Pt has remained on 0.7 mcg/kr/hr of precedex. Pt has had visual and tactile halluncinations this shift. However, pt remains A&O x 4, pleasant and cooperative with care. He often reports anxiety and restless behavior has been observed. No BM this shift. Pt had one incontinent void of urine. Otherwise, pt is able to void using urinal while in bed, with staff assist. SB/SR per monitor. BP stable. This evening, pt has verbalized desire to drink several times, stating "I bet some whiskey would make this go away" and "can you get me a drink with alcohol in it". Will continue to closely monitor until care handoff and bedside report with oncoming RN.
--- NOTE | 2019-11-22 19:16 | NUR ---
ASSUMED CARE AT 1915, PT SLEEPING RECIEVING BREATHING TREATMENT PER RT. SOFT PRESSURE AND YAZMIN CARDIA ASYMPTHOMATIC EXPECTED FROM MEDICATION. ON 2L NC.
--- NOTE | 2019-11-22 20:25 | NUR ---
Pharmacy called to check librium limit. 300mg/day is normal dose, pt LIMIT up TO 400mg for ICU status.
--- NOTE | 2019-11-23 06:37 | NUR ---
PT IS DROWSY, ABLE TO ANSWER ALCOHOL WITHDRAW QUESTIONS. LESS SEVRE HALLUCANATIONS OVER NIGHT. ONLY 6MG OF ATIVAN GIVEN OVENIGHT. PT HAD CHICKEN SOUP AND JELLO. MOVE PT TO CHAIR IN THE MORNING. ORTHOSTATIC HYPOTENSION, 500 BOLUS GIVEN. PRECEDEX HELD AND RESTARTED AT 0.5MCG/KG/HR ONCE PRESSURE CAME BACK UO TO NORMAL.
--- NOTE | 2019-11-23 07:15 | NUR ---
START OF SHIFT NOTE: RECEIVED REPORT FROM NASRIN ROSAS, ASSUMED CARE, PATIENT IS AWAKE, ALERT AND ORIENTED, ANSWERS ALL QUESTIONS APPROPRIATELY, UP IN CHAIR AT TIME OF BEDSIDE REPORT, BUT WISHES TO GET BACK TO BED, RETURNED TO BED WITH 3 ASSIST, PATIENT HYPOTENSIVE, RECEIVED 500 CC BOLUS DURING NOC SHIFT AFTER UP TO CHAIR, PRECEDEX AT 0.5 AT THIS TIME, PATIENT CONTINUES TO BE HYPOTENSIVE AFTER RETURNED TO BED, REQUESTED A BREATHING TREATMENT, LAUREN RT, IN TO GIVE TREATMENT, PATIENT STARTING TO COUGH UP LOOSENED SECRETIONS WITH MUCH EFFORT, THIS RN TRIED TO ASSIST WITH COUGHING BUT PATIENT REFUSED ADAMENTLY, APRESOLINE HELD D/T HYPOTENSION, PATIENT IS AFEBRILE, DENIES PAIN, HR IN 70'S, SBP'S IN UPPER 80'S, PATIENT ON 2L NC SATING IN MID 90'S, LUNG SOUNDS DIMINISHED, BOWEL TONES HYPOACTIVE, PATIENT IS ABLE TO USE URINAL TO VOID, SCD'S IN PLACE, PATIENT WATCHING TV, CALL LIGHT IN REACH, WILL CONTINUE TO MONITOR.
--- NOTE | 2019-11-23 08:15 | NUR ---
DR. LINK IN TO SEE PATIENT, NEW ORDERS RECEIVED.
--- NOTE | 2019-11-23 08:32 | NUR ---
PATIENT RECEIVED BED BATH AND LINEN CHANGE, EATING BREAKFAST WITH GOOD APPETITE, CALL LIGHT IN REACH, WILL CONTINUE TO MONITOR.
--- NOTE | 2019-11-23 08:33 | NUR ---
PATIENT STARTING TO HALLUCINATE, SEEING "BUGS" ON HIS SKIN.
[2019-11-23 08:39] LABS: BASOPHILS PERCENT AUTO 0 % (0-2); EOSINOPHILS ABSOLUTE AUTO 0.08 K/mm3 (0.00-0.68); EOSINOPHILS PERCENT AUTO 1 % (0-6); Hematocrit 45.6 % (37.0-53.0); Hemoglobin 14.9 g/dL (13.5-17.5); IMMATURE GRAN ABSOLUTE AUTO 0.04 K/mm3 (0.00-0.10); IMMATURE GRAN PERCENT AUTO 1 % (0-1); LYMPHOCYTES ABSOLUTE AUTO 1.91 K/mm3 (0.84-5.20); LYMPHOCYTES PERCENT AUTO 22 % (21-46); MONOCYTES ABSOLUTE AUTO 0.82 K/mm3 (0.16-1.47); MONOCYTES PERCENT AUTO 9 % (4-13); Mean Corpuscular HGB 30.9 pg (26.0-34.0); Mean Corpuscular HGB Conc 32.7 g/dL (31.5-36.5); Mean Platelet Volume 9.9 fL (9.1-12.4); NEUTROPHILS ABSOLUTE AUTO 5.86 K/mm3 (1.96-9.15); NEUTROPHILS PERCENT AUTO 67 % (41-73); Platelet Count 161 K/mm3 (150-400); RDW Coefficient Variation 12.1 % (11.7-14.2); RDW Standard Deviation 41.9 fL (35.1-46.3); Red Blood Cell Count 4.82 M/mm3 (4.30-5.90); White Blood Cell Count 8.71 K/mm3 (4.00-11.30)
[2019-11-23 08:48] LABS: Mean Corpuscular Volume 95 fL (80-100)
--- NOTE | 2019-11-23 09:30 | NUR ---
PATIENT C/O PAIN IN RIGHT HAND, HAS A SUPERFICIAL SMALL CLOT, AREA OUTLINED, LIMB ELEVATED, RECEIVED MOTRIN 400 MG PO ORDERED, CALL LIGHT IN REACH, WILL CONTINUE TO MONITOR.
--- NOTE | 2019-11-23 09:49 | NUR ---
PATIENT ON HIS CELL PHONE IN ROOM [facility] AND [facility] GO BUY NICOTINE LOZENGES FOR HIM AT [facility] AND BRING THEM HERE.
--- NOTE | 2019-11-23 10:30 | NUR ---
PATIENT NOW VISIBLE SHAKING, ANXIOUS, AND AGITATED, STATED "I JUST WANT TO LEAVE AND DRINK A FIFTH OF WHISKEY AND FORGET ABOUT ALL THIS", CIWA SCORE REVEALED A RESULT OF 19 AND PATIENT RECEIVED 2 MG ATIVAN IV, CALL LIGHT IN REACH, WILL CONTINUE TO MONITOR.
--- NOTE | 2019-11-23 10:49 | NUR ---
PATIENT HAD SOME JELLO AND NOW APPEARS TO BE A LITTLE CALMER.
--- NOTE | 2019-11-23 11:44 | NUR ---
PHYSICAL THERAPY IN TO WORK WITH PATIENT AND GET HIM TO A CHAIR, FINISHED BREATHING TREATMENT, ALSO RECEIVED HIS SCHEDULED LIBRIUM, PATIENT COOPERATIVE AT THIS TIME, CALL LIGHT IN REACH, WILL CONTINUE TO MONITOR.
--- NOTE | 2019-11-23 12:44 | NUR ---
PATIENT WAS UP IN CHAIR FOR LUNCH, ARE 100 % OF HIS LUNCH WITH GOOD APPETITE, RETURNED TO BED WITH 2 ASSIST, SBP IN 120'S AT THIS TIME, CONTINUES AT 2L NC WITH MID 90'S SATURATION, SR WITH HR IN 80'S, PRECEDEX AT 0.3 AT THIS TIME, CALL LIGHT IN REACH, WILL CONTINUE TO MONITOR.
--- NOTE | 2019-11-23 13:27 | NUR ---
PATIENT AGAIN TREMOLOUS AND STATED "I CAN'T TAKE THIS ANYMORE, I FEEL LIKE NEEDLES AND PINS, I NEVER HAD IT THAT BAD", CIWA SCORE OF 18, RECEIVED 2 MG OF ATIVAN, PRECEDEX TURNED DOWN TO 0.1.
--- NOTE | 2019-11-23 15:00 | NUR ---
VISITOR IN TO SEE PATIENT, BROUGHT PATIENT'S NICOTINE LOZENGES FROM HOME, SENT TO PHARMACY FOR REGISTRATION AND LABEL APPLICATION.
--- NOTE | 2019-11-23 15:15 | NUR ---
CALL FROM PHARMACY, PATIENT'S HOME NICOTINE LOZENGES HAVE IN 2016, PATIENT WAS NOTIFIED AND PRODUCED TWO MORE CONTAINERS WITH NICOTINE LOZENGES THAT ALSO IN 2016, PATIENT AND FRIEND WERE COUNSELED ON DANGERS OF BRINGING IN HOME MEDICATIONS AND CONCEALING THOSE MEDICATIONS FROM NURSING STAFF, WHICH COULD POTENTIALLY HAVE DETRIMENTAL OUTCOMES IN COORDINATION WITH THE ORDERED MEDICATION, PATIENT AND FRIEND BOTH VERBALIZED UNDERSTANDING, CALL LIGHT IN REACH, WILL CONTINUE TO MONITOR.
--- NOTE | 2019-11-23 17:05 | NUR ---
INITIAL ASSESSMENT ASSUMED CARE OF PATIENT AT 1630. PATIENT ALERT AND ORIENTED X 4, HOWEVER ACTIVELY GOING THROUGH ETOH WITHDRAWALS WITH CIWA SCORE OF 17. PATIENT GIVEN PRN IV ATIVAN 4 MG AND PRECEDEX DRIP INCREASED FROM 0.1 TO 0.3 MCG/ KG/ HOUR. PATIENT CONTINUES TO COMPLAIN OF FEELING BUGS CRAWL ALL OVER HIM, OF THE CHAIR IN THE ROOM LOOKING LIKE A MAN, OF "FEELING LIKE GUTS ARE JUMPING OUT". PATIENT HAS TEMP OF 99.2 DEGREES FAHRENHEIT. PATIENT HAS NO COMPLAINTS OF PAIN AT THIS TIME. PATIENT DECREASED FROM 2 L NC TO 1 L NC AND CONTINUES TO SAT 90% AND GREATER. PATIENT IN SR, HR 60S TO 90S. SBP 130S TO 140S. LAST BM NOTED ON 11/20. PATIENT ON REGULAR DIET. PATIENT USES URINAL WITH ASSISTANCE. PATIENT VOIDING LIGHT YELLOW URINE. REDNESS NOTED TO R HAND; SUPERFICIAL BLOOD CLOT REPORTED THERE. NS INFUSING AT 125 MLS/ HOUR. BED ALARM TURNED ON. BED LOW AND CALL LIGHT IN REACH. WILL CONTINUE TO MONITOR PATIENT FREQUENTLY THROUGHOUT SHIFT.
--- NOTE | 2019-11-23 18:43 | NUR ---
SHIFT SUMMARY PATIENT HAS REMAINED LABILE. PATIENT COOPERATIVE AT TIMES AND ANXIOUS, AGITATED AND HALLUCINATING AT OTHER TIMES. CIWAS 17 TO 19. PATIENT HAVING VISUAL AND SENSUAL HALLUCINATIONS. PATIENT HAS MAX TEMP OF 99.2 DEGREES FAHRENHEIT. PATIENT BEING GIVEN PRN IBUPROFEN FOR COMPLAINTS OF PAIN IN R HAND. PATIENT HAS REMAINED SATTING 90% AND GREATER ON 1 TO 2 L NC. DAY SHIFT RN REPORTED THAT PATIENT HAD DRY, NONPRODUCTIVE COUGH. PATIENT REMAINED IN SR TO ST, HR 60S TO LOW 100S. SBP 130S TO 160S. PATIENT HAD MEDIUM, FORMED, BROWN BM THIS SHIFT. PATIENT VOIDED ADEQUATE AMOUNT OF LIGHT YELLOW URINE INTO URINAL WITH ASSISTANCE. NO CHANGE IN SKIN. PATIENT REPOSITIONING SELF IN BED. PATIENT 2 PERSON ASSIST TO CHAIR OR TOILET. PRECEDEX INFUSING AT 0.3 MCG/ KG/ HOUR AND NS AT 125 MLS/ HOUR. PATIENT CURRENTLY RESTING QUIETLY IN BED WITH NO COMPLAINTS. BED LOW, CALL LIGHT IN REACH, BED ALARM ON. WILL BE GIVING REPORT TO ONCOMING EYEGLASS FRAMES POLISHER NURSE SHORTLY.
--- NOTE | 2019-11-23 19:52 | NUR ---
ASSUMPTION OF CARE ASSUMED CARE OF PT @ 1900, PT SLEEPING IN BED, AROUSABLE TO VERBAL STIMULI, ORIENTED TO SELF, LOCATION, EVENT AND FOLLOWING DIRECTIONS. PT VERY DROWSY AND QUICKLY FALLS ASLEEP. LS DIMINISHED T/O, ON 1L PER NC, O2 SATURATIONS 92-96%. MONITOR SHOWS SINUS RHYTHM WITH HR 70'S, BP STABLE WITH MAPS 65-70'S. SWELLING NOTED TO R HAND, REPORT FROM DAY SHIFT STS SUPERFICIAL THROMBOSIS TO R HAND. PT REPOSITIONING SELF IN BED INDEPENDENTLY. CALL LIGHT WITHIN REACH. PRECEDEX GTT @ 0.3, NS @ 125ml/hr.
[2019-11-24 03:27] LABS: Anion Gap 5 mmol/L (6-16); Blood Urea Nitrogen 24 mg/dL (8-24); Bun/Creatinine Ratio 25.5 (12.0-20.0); CO2, Blood 26 mmol/L (21-32); Calcium, Blood 7.8 mg/dL (8.5-10.1); Chloride, Blood 112 mmol/L (98-108); Creatinine, Blood 0.94 mg/dL (0.60-1.20); Glomerular Filtration Rate >60 (60-); Glucose, Blood 134 mg/dL (70-99); Potassium, Blood 3.6 mmol/L (3.5-5.5); Sodium, Blood 143 mmol/L (136-145)
--- NOTE | 2019-11-24 03:59 | NUR ---
R HAND PAIN PT WITH INCREASING PAIN TO R HAND, RADIAL PULSE INCREASINGLY FAINT. PRN TYLENOL AND IBUPROFEN ADMINISTERED, WARM PACK PLACED ON HAND, HAND ELEVATED ON PILLOWS. WARM PACK REMOVED PT STS MAKING PAIN WORSE. PT TEARFUL AND YELLING OUT IN PAIN, STS NO ONE IS DOING ANYTHING TO HELP. INFORMED PT IT CAN TAKE TIME FOR MEDICATIONS TO BE EFFECTIVE. APPROX 1 HOUR POST TYLENOL/IBUPROFEN ADMINISTRATION WITH NO RELIEF, SPOKE WITH DR HUTCHINS REGARDING POSSIBLE SUPERFICIAL CLOT PER REPORT FROM DAYSHIFT, INCREASED PAIN, AND FAINT PULSE. VENOUS DUPLEX AND TORADAL PRN ORDERED. TORADOL ADMINISTERED WITH GOOD EFFECT.
--- NOTE | 2019-11-24 06:41 | NUR ---
SHIFT SUMMARY PT CONTINUES TO HAVE SX OF ETOH WITHDRAWAL, SEE CIWA, MEDICATIONS PROVIDED AND PRECEDEX TITRATED NEEDED. PT ON 2L O2 PER NC, O2 SATURATIONS>92%. MONITOR SHOWS SINUS RHYTHM, HR 70'S, BP INCREASED T/O SHIFT, CURRENT SBP 140-150'S. NS INFUSING @ 125ml/hr, PRECEDEX gtt @ 0.5. PT VOIDING WITH ASSISTANCE IN URINAL, TOLERATING PO INTAKE. COMPLAINTS OF PAIN TO THE RIGHT HAND (SEE PREVIOUS NOTE).
--- NOTE | 2019-11-24 07:10 | NUR ---
START OF SHIFT NOTE: RECEIVED REPORT FROM IZA SY RN, ASSUMED CARE, PATIENT IS AWAKE BUT DROWSY, ORIENTED, ABLE TO ANSWER ALL QUESTIONS APPROPRIATELY, FOLLOWS COMMANDS, C/O PAIN IN RUE, U/S ORDERED FOR POSSIBLE BLOOD CLOT, AFEBRILE, ON RA SATING AT 95 %, LUNG SOUNDS CLEAR BUT DIMINISHED, SR WITH HR IN 70'S, SBP'S ELEVATED IN 140'S TO 150'S AGAIN, BOWEL TONES PRESENT BUT HYPOACTIVE, PATIENT KNOWS WHEN HE NEEDS TO VOID AND USES URINAL WITH ASSISTANCE, PEDAL PULSES PALPABLE, CALL LIGHT IN REACH, WILL CONTINUE TO MONITOR.
--- NOTE | 2019-11-24 07:35 | NUR ---
DR. LINK IN TO SEE PATIENT, ALSO SHIP PILOT DISPATCHER IN TO DO ORDERED U/S, PRECEDEX D/C'D, IVF'S D/C'D, DR. LINK REORDERED LISINOPRIL AT A LOWER DOSE, U/S SHOWED A SUPERFICIAL CLOT AROUND TIP OF POWERGLIDE, DR. LINK EXPRESSED NO CONCERN AND POWERGLIDE IS GOOD TO USE, PLACE HEAT ON SITE TO HELP BREAK UP CLOT, WILL WRITE NEW ORDERS, CALL LIGHT IN REACH, WILL CONTINUE TO MONITOR.
--- NOTE | 2019-11-24 08:45 | NUR ---
PHYSICAL THERAPY IN TO SEE PATIENT, UP TO CHAIR FOR BREAKFAST, ATE WITH GOOD APPETITE, TOOK AM PILLS WITHOUT ANY PROBLEM SWALLOWING, WATCHING TV, CALL LIGHT IN REACH, WILL CONTINUE TO MONITOR.
--- NOTE | 2019-11-24 11:10 | NUR ---
PATIENT EXHIBITING EXTREME WITHDRAWAL SYMPTOMS, SEVERE TREMORS, HALLUCINATIONS, SEEING "CRITTERS" ON ALL JESSICA, STATED "I FEEL LIKE I AM THROWING UP", PATIENT DID NOT VOMIT, BUT IS EATING LUNCH AT THIS TIME, ALSO RECEIVED HIS SCHEDULED NOON LIBRIUM WELL 2 MG ATIVAN FOR CIWA SCORE OF 20, CALL LIGHT IN REACH, WILL CONTINUE TO MONITOR.
--- NOTE | 2019-11-24 12:22 | NUR ---
PATIENT RETURNED TO BED WITH 2 ASSIST, CONTINUES TO BE SHAKY, AND HAS ELEVATED SBP'S, CIWA SCORE STILL 19, CALL LIGHT IN REACH, WILL CONTINUE TO MONITOR.
--- NOTE | 2019-11-24 14:06 | NUR ---
CALLED DR. LINK ABOUT PATIENT'S ELEVATED BLOOD RPESSURE, NEW ORDERS RECEIVED.
--- NOTE | 2019-11-24 17:13 | NUR ---
PATIENT IS WATCHING SUPERBOWL, EATING DINNER, CALL LIGHT IN REACH, WILL CONTINUE TO MONITOR.
--- NOTE | 2019-11-24 17:42 | NUR ---
SHIFT SUMMARY NOTE: NO ACUTE EVENTS DURING THIS SHIFT, PATIENT HAS MOMENTS OF SEVERE WITHDRAWAL, HIGHEST CIWA SCORE TODAY WAS 30, RECEIVED A TOTAL OF 6 MG ATIVAN, 15 MG OF TORADOL FOR PAIN IN RUE AND HIS SCHEDULED LIBRIUM, PATIENT IS EXTREMELY AGITATED AND ANXIOUS, STATED "YOU ALL TREAT ME LIKE A PIECE OF S... AND I ALWAYS THANK EVERYBODY AND PAY THEM A COMPLIMENT", PATIENT TOOK HIS LIBRIUM, CONTINUES TO SEE "CRITTERS" ON THE JESSICA, AND ALSO SEES "HIS BLOOD CLOTS MOVING UP HIS ARM AND MULTIPLYING", PATIENT HAD AN U/S OF RUE THIS AM AND THERE IS A SUPERFICIAL CLOT AROUND THE TIP OF THE POWERGLIDE, DR. LINK AWARE AND GAVE PERMISSION TO CONTINUED USE OF POWERGLIDE, PATIENT WORKED WITH PT AND WAS UP IN CHAIR FROM BREAKFAST TO LUNCH, RETURNED TO BED, USED BSC BUT NO BM THIS SHIFT, VOIDED MULTIPLE TIMES WITH ASSISTANCE, BLOOD PRESSURE ELEVATED INTO 170'S TO 180'S, DR. LINK NOTIFIED, RECEIVED ORDER FOR LOPRESSOR, ALSO LISINOPRIL WAS REORDERED, HOWEVER PATIENT IS VERY AGITATED MOST OF THE TIME, FOR DETAILS SEE SHIFT ASSESSMENT DOCUMENTATION AND NURSES NOTES, CALL LIGHT IN REACH, WILL CONTINUE TO MONITOR AND GIVE REPORT TO ONCOMING SWAGE TOOLSETTER.
--- NOTE | 2019-11-24 18:23 | NUR ---
PATIENT PULLED OFF ALL HIS LINES AND STATED "I WANT OUT OF HERE", PATIENT WAS INSTRUCTED THAT HE NEEDED TO REMAIN IN THE HOSPITAL, PATIENT ASKED FOR BREATHING TREATMENT, SOME WHEEZING NOTED, RT NOTIFIED WILL BE HERE WITH TREATMENT, PATIENT CIWA SCORE WAS 23, RECEIVED ANOTHER 4 MG OF ATIVAN FOR EXTREME AGITATION AND ANXIETY, CALL LIGHT IN REACH, WILL CONTINUE TO MONITOR.
--- NOTE | 2019-11-24 20:30 | NUR ---
ASSUMPTION OF CARE ASSUMED CARE OF PT @ 1900, PT AWAKE IN BED, ALERT AND ORIENTED TO SELF, PLACE, EVENT AND FOLLOWING DIRECTIONS, CIWA 3. PT ON RA, RESPIRATIONS EVEN AND UNLABORED, TALKING IN FULL SENTENCES. MONITOR SHOWS SINUS RHYTHM, HR 80'S-90'S, HTN, SCHEDULED BP MEDICATIONS ON DEC, WILL CONTINUE TO MONITOR. PT UP TO BEDSIDE TOILET, CONTINENT OF BOWEL AND BLADDER, WEAK BUT STEADY GAIT WITH SBA. PT TOLERATING PO INTAKE. DISCUSSED WITH PT PLAN FOR THE NIGHT, WHEN MEDICATIONS WILL BE PASSED AND WHEN PRN MEDICATIONS ARE AVAILABLE, DISCUSSED APPROPRIATE USE OF CALL LIGHT. CALL LIGHT WITHIN REACH.
--- NOTE | 2019-11-24 21:15 | NUR ---
IMPULSIVE PT UP TO BEDSIDE TOILET, WHILE DIRECTING PT TO TOILET PT JUMPED UP IN AIR AND BECAME UNSTEADY ON FEET, DIRECTED PT NOT TO JUMP, PT JUMPED UP AGAIN AND THEN SAT ON TOILET. PT BACK TO BED, DISCUSSED WITH PT IMPORTANCE OF FOLLOWING DIRECTONS AND STAYING SAFE WHILE AMBULATING IN HOSPITAL. BED ALARM SET. PLAN TO USE URINAL/BEDPAN FOR REMAINDER OF NIGHT. CALL LIGHT WITHIN REACH.
--- NOTE | 2019-11-24 22:38 | NUR ---
BLOOD PRESSURE CALL PLACED TO DR HAGEN REGARDING HIGH BP, ETOH WITHDRAWALS STABLE. SEE NEW ORDERS FOR NORVASC AND HYDRALAZINE.
--- NOTE | 2019-11-24 23:16 | NUR ---
LABILE PTS MOOOD VERY LABILE, PT BECOMES TEARFUL, ASKING "HOW LONG IS THIS GOING TO TAKE?" ABOUT ETOH WITHDRAWALS, STS HE CANNOT SLEEP, AND THEN BEGINS TALKING ABOUT THE TELEVISION PROGRAM HE IS WATCHING AND EXPLAINS WHAT THE SHOW IS ABOUT. MEDICATION PROVIDED FOR ETOH WITHDRAWAL, PAIN AND HTN. ASSISTED PT WITH URINAL, REPOSITIONED PT IN BED. LIGHTS DIMMED, ENCOURAGED PT TO REST. CALL LIGHT WITHIN REACH.
--- NOTE | 2019-11-25 01:05 | NUR ---
CALL TO DR HUTCHINS REGARDING PTS BP AND DIFFICULTY SLEEPING. SEE NEW ORDERS FOR HYDRALAZINE AND MELATONIN.
--- NOTE | 2019-11-25 03:07 | NUR ---
PT ATTEMPTING TO GET OUT OF BED, STS JUST WANTS TO WALK AROUND. DISCUSSED WITH PT IMPULSIVE BEHAVIOR FROM EARLIER (SEE NURSING NOTE), THE TIME AND THE NEED FOR REST. PT RESISTANT TO NURSING STAFF HELPING HIM BACK INTO BED, ADMAMANT ABOUT GETTING OUT OF BED AND STS "I NEED TO LEAVE THIS ROOM", STS HE THOUGHT HE WAS AT HOME WHEN HE WOKE UP. ONCE RESITUATED IN BED, PT AGAIN ATTEMPTS TO GET OF OF BED. REMINDED PT HE NEEDS TO STAY IN BED, OFFERED TO SIT PT UP IN BED TO WATCH TV OR LISTEN TO MUSIC. PT BECAME VERY OVERWHELMED, ANXIOUS AND AGITATED, TEARFUL, STS HE WANTS TO LEAVE, CIWA 9, ATIVAN PROVIDED WITH LITTLE RELEIF. I HAD A LONG CONVERSATION WITH THE PT ABOUT WHAT HIS PLANS AND GOALS ARE, PT STS HE WANTS TO GO TO THE [facility] AND THEN TO [facility], REMINDED PT OUR GOAL IS TO GET [facility] WELL EN[facility]. PT SEEMS TO FOCUS ON NEGATIVE ASPECTS MAKING IT DIFFICULT FOR HIM TO RELAX, AT TIMES TRIES TO BARTER WITH NURSE PROMISING "GOOD BEHAVIOR" IF ALLOWED TO GET OUT OF BED AND WALK AROUND. ONCE PT CALMS, HE BECOMES REMORSEFUL AND APPOLOGIZES FOR BEHAVIOR. BED ALARM ON, CALL LIGHT WITHIN REACH.
--- NOTE | 2019-11-25 05:40 | NUR ---
SHIFT SUMMARY PT UP FOR MOST OF NIGHT, CONFUSED TO LOCATION UPON AWAKING, BUT OTHERWISE ORIENTED. PT HAS DIFFICULTY WITH DETENTION GOAL/PLANNING, KNOWS WHAT HE WANTS BUT DOES NOT UNDERSTAND THE STEPS/PROCESS TO GET THERE. IMPULSIVE, IRRITABLE AND LABILE BEHAVIOR T/O SHIFT, SEE PREVIOUS NOTES. CIWA 3-9, SCHEDULED LIBRIUM PROVIDED, MINIMAL PRN MEDICATONS REQUIRED. PT REMAINS ON RA WITH O2 SATURATIONS>90%, MONITOR SHOWS SINUS RHYTHM, OCCASSIONAL TACHYCARDIA WITH HR 80'S-110, PT HTN THIS SHIFT (SEE PREVIOUS NOTE). PT COMPLAINS OF R HAND PAIN, PRN TORADOL AND TYLENOL PROVIDED.
--- NOTE | 2019-11-25 09:09 | NUR ---
AM NOTE... FROM THE TIME CARE WAS ASSUMED ON PT HE HAS BEEN A/O BUT APPEARING SOMEWHAT GRUFF AND ANXIOUS. HOWEVER HE IS GRUFF BUT COOP. AND WILLING TO TAKE INSTRUCTION AND IS DIRECTABLE. PT CHIEF COMPLAINT IS RE HIS R HAND WRIST WHICH DOES APPEAR SOMEWHAT IRRITATED DOWN SOME OF THE VEINS ON HAND. PT WILLING TO ELEVATE AND INDICATES THIS DOES HELP BUT SAYS PAIN IN A 8/10. THIS WAS ADDRESSED WITH DR LINK AND MEDS WERE ORDERED NOTED. PT UP TO TOILET AND THEN TO CHAIR WITH MINIMAL SBA AND WAS ABLE TO FEED HIMSELF. HE DOES REMAIN SOMEWHAT IMPULSIVE BUT IS DIRECTABLE W/O ANY S/S OF WITHDRAWAL CURRENTLY.
--- NOTE | 2019-11-25 10:12 | NUR ---
IV SITES R P.G. AND L 18G AC D/C. CATH ARE INTACT AND THESE WERE D/C APPROX 1 HOUR AFTER AM HEPARIN DOSE WAS CHANGED AND GIVE.
--- NOTE | 2019-11-25 11:02 | NUR ---
PT UP FOR SHOWER. REMAINS UNSTEADY ON FEET AND REQUESTING PT TO CALL FOR SBA. PT IS UP IN CHAIR. PAIN IN R HAND/WRIST RETURNING WITH ICE AND ELEVATIION RESTARTED. PT INDICATES ICE FEELING BETTER AT THIS TIME.
--- NOTE | 2019-11-25 13:51 | NUR ---
1345 REPORT CALLED TO NATHAN ALEXANDRA AND WILL TRANSFER TO 341 VIA W/C PAULA. PT CONT TO HAVE INTERMITTENT AND CHANGING DISTRSSS WITH R HAND THAT IS WORSE AFTER ACTIVITY. ICE AND ELEVATED CURRENTLY.
--- NOTE | 2019-11-25 19:15 | NUR ---
SHIFT SUMMARY BILL ARRIVED FROM ICU THIS AFTERNOON. PT A/OX4. COMPLAINED OF L WRIST PAIN FOR WHICH TRAMADOL AND ICE WERE EFFECTIVE. GOOD APPETITE, UP TO BR WITH SBA. CALLS APPROPRIATELY BUT HAS URINARY URGENCY. CBG HIGH, SO RECEIVED INSULIN. TOOK MEDS PRESCRIBED, VSS. CALL LIGHT IN REACH, WCTM
--- NOTE | 2019-11-25 20:08 | NUR ---
11/25/192014 PT C/O RT HAND/ARM PAIN "WHERE THE BLOOD CLOT IS!". CRYING AND WANTING "SHOT". RT HAND/ARM ELEVATED ON ICE PACK ON IT. VERY RUDE TOWARDS NURSE AND UPSET. ATIVAN 2 MG PO GIVEN FOR AGITATION/RESTLESSNESS.
--- NOTE | 2019-11-25 20:53 | NUR ---
11/25/19 2015 PT STILL AT LEVEL "9". WILL PAGE ABOUT SEVERE PAIN.
--- NOTE | 2019-11-26 03:41 | NUR ---
11/26/19 0320 PT SLEEPING AND SNORING. NO DISTRESS NOTED.
--- NOTE | 2019-11-26 07:22 | NUR ---
11/26/19 0610 AWAKENED FOR VITALS, MEDS AND DAILY WT. MEDICATED FOR PAIN PER DEC. VITALS ARE STABLE. PT DID SLEEP WELL FOR ABOUT 4 HOURS. RT HAND AND ARM WARM WITH PULSE. ELEVATED RT HAND AND ARM ON PILLOW WITH ICE PACK MOST OF SHIFT.
--- NOTE | 2019-11-26 17:55 | NUR ---
PT ALERT AND ORIENTED DURING THIS SHIFT. PT FORGETFUL AT TIMES AND FORGETS TO USE CALL LIGHT. PT COOPERATIVE WITH CARE AND MAKING PLANS FOR CONTINUED SOBRIETY UPON DISCHARGED. PT CURRENTLY UP IN CHAIR EATING DINNER.
--- NOTE | 2019-11-27 07:46 | NUR ---
EOS: PATIENT WAS IMPULSIVE AND JUMPING OOB FREQUENTLY, KNOCKING THINGS OVER SETTING OFF VARIOUS ALARMS ALL SHIFT. HE COMPLAINED OF PAIN AND WAS GIVEN PAIN MEDS PER EMAR. HE COMPLAINED ABOUT HIS BED AND WE REPLACED THE BED WITH A NON-AIR BED. PT RECEIVED A SHOWER. STAFF WAS AT BEDSIDE MOST OF THE SHIFT. HE MAY BENEFIT FROM A SUPERVISED UNIT. ATTENTION SEEKING BEHAVIOUR.
[2019-11-27] MEDS ORDERED: ACET325 PO (11:27)
[2019-11-27] MEDS ORDERED: AMLO5 PO (11:28)
[2019-11-27] MEDS ORDERED: FOLI1 PO (11:28)
[2019-11-27] MEDS ORDERED: METO25 PO (11:29)
--- NOTE | 2019-11-27 14:08 | NUR ---
Spiritual care visit conducted. Patient is sitting in the doorway of his room. Patient is tearful about how he has blown up his life, about how bad he wants to live clean a sober and about dissappointed God must be with him. Patient shows signs of of diminished sense of dignity and large amounts of guilt. I help patient explore sources of meaning and value, hear confession, encourage self-care and provide spiritual guidance, companionship and prayer. Patient responds well and displays evidence of improved hope and restored [id number].
--- NOTE | 2019-11-27 14:32 | NUR ---
SUMMARY/DISCHARGE PT DISCHARGED TO HOME, DISCHARGE PLANNING HAS ARRANGED TRANSPORTATION, PT TAKEN OUT SAFELY VIA WHEELCHAIR
== END 2019-11-27 14:29 | disposition home or self-care (01) | DRG 191 ==
LOC: ER 19:07 → ICUW 22:59 → ER 11-16 00:11 → ICUE 11-16 00:11 → ICUW 11-16 00:16 → ICUE 11-16 00:16 → MEDS 11-25 14:09
PROVIDERS: Emergency Medicine; Internal Medicine; Nurse Practitioner Acute Care; ADMIT Internal Medicine
DX: J44.1 Chronic obstructive pulmonary disease with (acute) exacerbation (principal); F10.231 Alcohol dependence with withdrawal delirium; I82.611 Acute embolism and thrombosis of superficial veins of right upper extremity; F10.221 Alcohol dependence with intoxication delirium; L03.113 Cellulitis of right upper limb; G31.2 Degeneration of nervous system due to alcohol; I10 Essential (primary) hypertension; F41.1 Generalized anxiety disorder; F32.9 Major depressive disorder, single episode, unspecified; E66.9 Obesity, unspecified; F11.11 Opioid abuse, in remission; R73.9 Hyperglycemia, unspecified; Y90.6 Blood alcohol level of 120-199 mg/100 ml; Z85.46 Personal history of malignant neoplasm of prostate; F90.9 Attention-deficit hyperactivity disorder, unspecified type; G89.4 Chronic pain syndrome; M54.9 Dorsalgia, unspecified; F17.210 Nicotine dependence, cigarettes, uncomplicated; T38.0X5A Adverse effect of glucocorticoids and synthetic analogues, initial encounter; I95.9 Hypotension, unspecified; Z68.37 Body mass index [BMI] 37.0-37.9, adult
CPT/HCPCS: 36415; 36600; 71045; 80048; 80053; 82803; 82947; 83735; 83880; 84100; 84484; 85025; 93005; 93010; 93971; 94640; 94644; 94645; 94667; 94760; 96374; 96375; 97110; 97116; 97162; 97166; 97530; 97535; 99285-25; A9270; C1751; G0480; J0360; J1644; J1650; J1885; J2060; J2405; J2920; J2930; J3411; J3475; J7030; J7040; J7042; J7050; J7120; J7512